=== PATIENT | female | born 1975 | race Caucasian/White ===

== ENCOUNTER 2020-11-19 23:36 | Emergency (ER) | payer OTHER ==
[~2020-11-19] VITALS: Ht 167.6 cm; Wt 90.7 kg
[2020-11-19 23:43] VITALS: Ht 167.6 cm; Wt 90.7 kg
[2020-11-20 01:30] LABS: BASOPHIL % 0.4 % (0.2-1.3); PLATELET COUNT 366 x10^3mcL (179-408); RED CELL DISTRIBUTION WIDTH 13.9 % (12.3-17.7)
[2020-11-20 02:42] LABS: CALCIUM 9.4 mg/dL (8.5-10.1); CARBON DIOXIDE 27.8 mmol/L (21-32); CREATININE SERUM 1.1 mg/dL (0.6-1.0); POTASSIUM SERUM 4.2 mmol/L (3.5-5.1)
[2020-11-20 02:46] LABS: ALBUMIN 3.6 g/dL (3.4-5.0); BILIRUBIN TOTAL 0.25 mg/dL (0.20-1.00); TOTAL PROTEIN, SERUM 8.2 g/dL (6.4-8.2)
[2020-11-20 03:14] VITALS: BP 154/79
== END 2020-11-20 03:14 | disposition home or self-care (01) ==
LOC: ED 23:36
PROVIDERS: Emergency Medicine
DX: M54.5 Low back pain (principal); R10.9 Unspecified abdominal pain; I10 Essential (primary) hypertension; E11.9 Type 2 diabetes mellitus without complications; Z88.6 Allergy status to analgesic agent